=== PATIENT | female | born 1970 | race Caucasian/White ===

== ENCOUNTER 2024-08-21 13:47 | Emergency (ER) | payer SELFPAY ==
[~2024-08-21] VITALS: Ht 162.6 cm; Wt 75.0 kg
[2024-08-21 13:52] VITALS: BP 148/78; PULSE 92; RESP 18; TEMP 36.8; O2SAT 99
[2024-08-21] MEDS ORDERED: METOCLOPRAMIDE HCL 10MG/2ML VIAL IV ONE (14:45)
[2024-08-21] MEDS ORDERED: KETOROLAC 15MG/ML VIAL IV ONE (14:45)
[2024-08-21] MEDS ORDERED: SODIUM CHLORIDE 0.9% 1,000 ML IV ONE (14:45)
== END 2024-08-21 20:00 | disposition left against medical advice (07) ==
LOC: ER 13:47
DX: R51.9 Headache, unspecified (principal); E11.9 Type 2 diabetes mellitus without complications
CPT/HCPCS: 99283; J7030